=== PATIENT | male | born 1980 | race Caucasian/White ===

== ENCOUNTER 2018-07-07 11:36 | Outpatient (CLI) | payer OTHER | END 2018-07-07 11:37 | disposition home or self-care (01) | DRG 556 | LOC: CONVCARE 11:36 | PROVIDERS: ATTEND Orthopaedic Surgery | DX: M25.562 Pain in left knee (principal) | CPT/HCPCS: 73562 ==

== ENCOUNTER 2018-09-22 13:03 | Outpatient (CLI) | payer OTHER | END 2018-09-22 13:04 | disposition home or self-care (01) | DRG 93 | LOC: CONVCARE 13:03 | PROVIDERS: ATTEND Orthopaedic Surgery | DX: R20.2 Paresthesia of skin (principal); M54.9 Dorsalgia, unspecified | CPT/HCPCS: 72120 ==